=== PATIENT | male | born 2000 | race Two or more races ===

== ENCOUNTER → 2024-01-10 | Emergency (ER) | payer MEDICARE, OTHER ==
[~2024-01-10] VITALS: Ht 182.9 cm; Wt 137.0 kg
[2024-01-10 10:32] VITALS: BP 159/92; RESP 18; TEMP 97.7; O2SAT 97
[2024-01-10 10:34] VITALS: PULSE 78
[2024-01-10 11:03] LABS: BASOPHILS % 0.3 % (0.0-2.0); EOSINOPHILS % 0.7 % (0.0-5.0); HEMOGLOBIN. 14.9 g/dL (14.0-18.0); LYMPHOCYTES % 10.2 % (20.0-50.0); MEAN CORPUSCULAR HEMOGLOBIN 29.8 pg (28.0-32.0); MEAN CORPUSCULAR HGB CONC 33.8 g/dL (31.0-37.0); MEAN CORPUSCULAR VOLUME 88.1 fL (80.0-94.0); MEAN PLATELET VOLUME 9.2 fl (7.4-10.4); MONOCYTES % 6.5 % (2.0-8.0); NEUTROPHILS % 82.3 % (40.0-76.0); PLATELET 201 x1000/uL (130-400); RED BLOOD CELL COUNT 4.99 mill/uL (4.7-6.1); RED CELL DISTRIBUTION WIDTH 12.9 % (11.6-14.6)
[2024-01-10 11:22] LABS: CHLORIDE 106 mEq/L (98-107); POTASSIUM 3.9 mEq/L (3.5-5.1); SODIUM 138 mEq/L (136-145)
[2024-01-10 11:24] LABS: CARBON DIOXIDE 24 mEq/L (21-32)
[2024-01-10 11:25] LABS: CALCIUM 9.3 mg/dL (8.7-10.4)
[2024-01-10 11:29] LABS: CREATININE 0.9 mg/dL (0.6-1.3); GLUCOSE 124 mg/dL (70-105)
[2024-01-10 11:30] LABS: UREA NITROGEN BLOOD 6 mg/dL (9-23)
[2024-01-10 11:31] LABS: ALANINE AMINOTRANSFERASE 47 IU/L (10-49); ALBUMIN 4.4 g/dL (3.2-4.8); ASPARTATE AMINOTRANSFERASE 24 IU/L (<34); TROPONIN I HIGH SENSITIVITY < 4 ng/L (3.0-53)
[2024-01-10 11:32] LABS: BILIRUBIN DIRECT 0.2 mg/dL (<=3.0); BILIRUBIN TOTAL 0.6 mg/dL (0.1-1.0); PROTEIN TOTAL 7.5 g/dL (6.0-8.3)
[2024-01-10] MEDS: FAMOTIDINE 20MG/2ML VIAL IV NR (12:00)
[2024-01-10] MEDS: PANTOPRAZOLE SODIUM 40 MG/VIAL IV NR (12:00)
[2024-01-10] MEDS: PROCHLORPERAZINE 10MG/2ML VIAL IV NR (12:00)
[2024-01-10] MEDS: DIPHENHYDRAMINE 50MG/ML VIAL IV NR (12:00)
[2024-01-10] MEDS: SODIUM CHLORIDE 0.9% 1,000 ML IV ONE (12:00)
[2024-01-10] MEDS: MAGNESIUM/ALUMINUM HYDROXIDE/SIMETHICONE 30ML UDC PO NR (12:00)
== END | disposition home or self-care (01) ==
LOC: ER 10:27
DX: R10.13 Epigastric pain (principal); R11.2 Nausea with vomiting, unspecified
CPT/HCPCS: 36415; 71045; 80048; 80076; 84484; 85025; 93005; 99285; J0780